=== PATIENT | female | born 1975 | race Caucasian/White ===

== ENCOUNTER 2017-11-24 07:57 | Emergency (ER) | payer SELFPAY ==
[2017-11-24] MEDS ORDERED: KETOROLAC TROMETHAMINE INJ/PF 30 MG/1 ML SDV IV ONE (08:19)
[2017-11-24] MEDS ORDERED: NORMAL SALINE 1000 ML 1,000 ML IV ONE (08:19)
--- NOTE | 2017-11-24 08:22 | ER Document Report ---
ED Flu Like - General Chief Complaint: Flu Symptoms Stated Complaint: BODY ACHES Time Seen by Provider: 11/24/17 08:18 Mode of Arrival: Ambulatory Notes: 42 years old female with a history of hypertension presents today with 2 day history of general body aches and pain malaise and runny nose. Feverish feeling too. Denies any headache neck pain neck stiffness chest pain shortness of breath denies any abdominal pain nausea vomiting diarrhea. TRAVEL OUTSIDE OF THE [place] IN LAST 30 DAYS: No - Related Data Allergies/Adverse Reactions: codeine [Codeine] Allergy (Intermediate, Verified 11/24/17 08:15) Generalized Itching Past Medical History - General Information source: Patient - Social History Smoking Status: Unknown if Ever Smoked Chew tobacco use (# tins/day): No Frequency of alcohol use: None Drug Abuse: None Family History: Reviewed & Not Pertinent Patient has suicidal ideation: No Patient has homicidal ideation: No - Past Medical History Cardiac Medical History: Reports: Hx Hypercholesterolemia, Hx Hypertension Pulmonary Medical History: Reports: Hx Pneumonia Renal/ Medical History: Denies: Hx Peritoneal Dialysis GI Medical History: Reports: Hx Gastroesophageal Reflux Disease Psychiatric Medical History: Reports: Hx Depression Past Surgical History: Reports: Hx Gynecologic Surgery - lap, btl, Hx Orthopedic Surgery - l knee x2 - Immunizations Hx Diphtheria, Pertussis, Tetanus Vaccination: Yes Review of Systems - Review of Systems Constitutional: Chills, Fever, Malaise EENT: Sinus pressure. denies: No symptoms reported, See HPI, Eye pain, Eye discharge, Blurred vision, Tearing, Double vision, Ear pain, Ear discharge, Nose pain, Nose congestion, Nose discharge, Sinus discharge, Throat pain, Difficulty swallowing, Throat swelling, Mouth pain, Mouth swelling, Dental problem, Vertigo, Other Cardiovascular: denies: No symptoms reported, See HPI, Chest pain, Palpitations , Heart racing, Orthopnea, Dyspnea, Syncope, Dizziness, Lightheaded, Edema, Other, Paroxysmal Nocturnal Dysp Respiratory: denies: No symptoms reported, See HPI, Cough, Hurts to breathe, Hemoptysis, Short of breath, Sputum, Stridor, Wheezing, Other Gastrointestinal: denies: No symptoms reported, See HPI, Abdomen distended, Abdominal pain, Diarrhea, Nausea, Vomiting, Constipation, Blood streaked bowels , Poor appetite, Poor fluid intake, Blood in vomit, Black stools, Rectal bleeding, Last bowel movement, Fecal incontinence, Other Genitourinary: denies: No symptoms reported, See HPI, Burning, Dysuria, Discharge, Frequency, Flank pain, Hematuria, Incontinence, Pain, Urgency, Retention, Other Female Genitourinary: denies: No symptoms reported, See HPI, Last menstrual period, , Post menopausal, Heavy/abnormal periods, Irregular period, Vaginal bleeding, Vaginal discharge, Vaginal odor, Painful intercourse, Other Musculoskeletal: denies: No symptoms reported, See HPI, Back pain, Gout, Joint pain, Joint swelling, Muscle pain, Muscle stiffness, Neck pain, Deformity, Leg swelling, Ankle swelling, Other Skin: denies: No symptoms reported, See HPI, Change in color, Change in hair/ nails, Dryness, Lesions, Lumps, Rash, Other Hematologic/Lymphatic: denies: No symptoms reported, See HPI, Anemia, Blood clots, Easy bleeding, Easy bruising, Enlarged lymph nodes, Swollen glands, Other Neurological/Psychological: denies: No symptoms reported, See HPI, Confusion, Dementia, Depression, Hallucinations, Anxiety, Homicidal ideation, Sensory change, Weakness, Gait changes, Loss of power, Paralysis, Seizure, Lost consciousness, Headaches, Speech impairment, Numbness, Suicidal ideation, Tingling, Tremor, Other Physical Exam - Vital signs Vitals: Temp Pulse Resp BP Pulse Ox 99.2 F 112 H 18 152/87 H 99 11/24/17 08:01 11/24/17 08:01 11/24/17 08:01 11/24/17 08:01 11/24/17 08:01 - Notes Notes: PHYSICAL EXAMINATION: GENERAL: General weakness, mild to moderate distress noted. HEAD: Atraumatic, normocephalic. EYES: Pupils equal round and reactive to light, extraocular movements intact, conjunctiva are normal. ENT: Nares patent, oropharynx clear without exudates. Moist mucous membranes. NECK: Normal range of motion, supple without lymphadenopathy LUNGS: Breath sounds clear to auscultation bilaterally and equal. No wheezes rales or rhonchi. HEART: Regular rate and rhythm without murmurs ABDOMEN: Soft, nontender, nondistended abdomen. No guarding, no rebound. No masses appreciated. Female : deferred Musculoskeletal: Normal range of motion, no pitting or edema. No cyanosis. NEUROLOGICAL: Cranial nerves grossly intact. Normal speech, normal gait. Normal sensory, motor exams PSYCH: Normal mood, normal affect. SKIN: Warm, Dry, normal turgor, no rashes or lesions noted. Course - Re-evaluation Re-evalutation: 11/24/17 10:36 She was given IV fluid, - Vital Signs Vital signs: Temp Pulse Resp BP Pulse Ox 99.2 F 112 H 18 152/87 H 99 11/24/17 08:01 11/24/17 08:01 11/24/17 08:01 11/24/17 08:01 11/24/17 08:01 - Laboratory Result Diagrams: 11/24/17 08:34 Laboratory results interpreted by me: 11/24/17 08:34 Hgb 10.3 L Hct 33.0 L MCV 63 L MCH 19.6 L MCHC 31.3 L RDW 19.3 H Lymphocytes % 11.8 L Eosinophils % 6.3 H Influenza came back negative Discharge - Discharge Clinical Impression: Viral syndrome, Dehydration Condition: Critical Disposition: HOME, SELF-CARE Instructions: Viral Syndrome ([facility]), Acetaminophen
[2017-11-24 09:03] LABS: ABSOLUTE EOSINOPHILS # (AUTO) 0.5 10^3/uL (0.0-0.6); ABSOLUTE NEUT (AUTO) 5.5 10^3/uL (1.7-8.2); BASOPHILS % (AUTO) 0.6 % (0-2); EOSINOPHILS % (AUTO) 6.3 % (0-6); HEMOGLOBIN 10.3 g/dL (12.0-15.5); LYMPHOCYTES % (AUTO) 11.8 % (13-45); MEAN CORPUSCULAR HEMOGLOBIN 19.6 pg (27.0-33.4); MEAN CORPUSCULAR HGB CONC 31.3 g/dL (32.0-36.0); MONOCYTES % (AUTO) 12.5 % (3-13); PLATELET COUNT 257 10^3/uL (150-450); RED BLOOD COUNT 5.28 10^6/uL (3.72-5.28); RED CELL DISTRIBUTION WIDTH 19.3 % (11.5-14.0); SEGMENTED NEUTROPHILS % (AUTO) 68.8 % (42-78); TOTAL CELLS COUNTED % (AUTO) 100 %; WHITE BLOOD COUNT 8.1 10^3/uL (4.0-10.5)
[2017-11-24 09:10] LABS: A TYPE INFLUENZA AG NEGATIVE (NEGATIVE); B INFLUENZA AG NEGATIVE (NEGATIVE)
[2017-11-24 09:32] LABS: MEAN CORPUSCULAR VOLUME 63 fl (80-97)
[2017-11-24 09:35] LABS: ANISOCYTOSIS 2+; HYPOCHROMASIA 2+; OVALOCYTES 1+; PLATELET COMMENT ADEQUATE; POIKILOCYTOSIS 1+; POLYCHROMASIA SLIGHT
[2017-11-24 11:08] VITALS: BP 133/77
== END 2017-11-24 10:53 | disposition home or self-care (01) ==
LOC: ER 07:57
DX: B34.9 Viral infection, unspecified (principal); E86.0 Dehydration; R53.81 Other malaise; R09.89 Other specified symptoms and signs involving the circulatory and respiratory systems; R52 Pain, unspecified; R50.9 Fever, unspecified; R53.1 Weakness; J34.89 Other specified disorders of nose and nasal sinuses; I10 Essential (primary) hypertension
CPT/HCPCS: 99283; 96361; 96374; 36415; 85025; 87804; J1885; J7030

== ENCOUNTER 2019-02-07 18:57 | Emergency (ER) | payer MEDICAID ==
[~2019-02-07 18:57] MED LIST: ROCURONIUM BROMIDE INJ 50 MG/5 ML VIAL IV ONE; TENECTEPLASE INJ 50 MG KIT IV ONE
[2019-02-07] MEDS ORDERED: ENOXAPARIN SODIUM INJ 100 MG/1 ML DISP.SYRIN SUBCUT ONE (18:59)
[2019-02-07] MEDS ORDERED: PROPOFOL 1,000 MG/100 ML INFUS..BTL IV ONE (19:06)
[2019-02-07] MEDS ORDERED: HYDROMORPHONE HCL INJ/PF 2 MG/ML AMPULE ONE (19:06)
[2019-02-07] MEDS ORDERED: NITROGLYCERIN/D5W 50 MG/250 ML RTUINJ IV ONE (19:12)
[2019-02-07] MEDS ORDERED: HYDROMORPHONE HCL INJ/PF 2 MG/ML AMPULE IV PRN (19:21)
[2019-02-07] MEDS ORDERED: NITROGLYCERIN/D5W 50 MG/250 ML RTUINJ IV PRN (19:22)
[2019-02-07] MEDS ORDERED: AMIODARONE HCL 150 MG in DEXTROSE 5%-WATER 100 ML IV ONE (19:25)
[2019-02-07] MEDS ORDERED: DEXTROSE 5%-WATER 500 ML with AMIODARONE HCL 900 MG IV PRN ×2 (19:26)
[2019-02-07] MEDS ORDERED: AMIODARONE HCL INJ 150 MG/3 ML VIAL IV ONE ×2 (19:27→19:28)
--- NOTE | 2019-02-07 19:28 | ER Document Report ---
ED General - General Stated Complaint: POST ARREST Time Seen by Provider: 02/07/19 19:21 Cannot obtain history due to: Unstable vital signs, Altered mental status Notes: Patient is a 45-year-old female with unknown past medical history who presents by EMS after a cardiac arrest in the setting of V. tach. Patient apparently called for chest pain, in route to the hospital had a V. tach arrest. No additional history can be obtained beyond what is discussed in the course section as patient is lethargic and unable to answer any questions. - Related Data Allergies/Adverse Reactions: No Known Allergies Allergy (Unverified 02/07/19 19:51) Past Medical History - General Information source: Emergency Med Personnel Cannot obtain history due to: Unstable vital signs, Altered mental status - Social History Smoking Status: Unknown if Ever Smoked Family History: Reviewed & Not Pertinent Review of Systems - Review of Systems -: Yes ROS unobtainable due to patient's medical condition Physical Exam - Vital signs Vitals: Pulse Ox 91 L 02/07/19 19:03 Interpretation: Hypertensive, Tachycardic, Hypoxic Notes: PHYSICAL EXAMINATION: GENERAL: Lethargic, wakes to loud voice. Rapidly goes back to sleep, covered in vomitus HEAD: Atraumatic, normocephalic. EYES: Pupils equal round and reactive to light, extraocular movements intact, sclera anicteric, conjunctiva are normal. ENT: nares patent, oropharynx clear without exudates. Moderately dry mucous membranes. NECK: Supple without lymphadenopathy LUNGS: Mild tachypnea. Breath sounds clear to auscultation bilaterally and equal. No wheezes rales or rhonchi. HEART: Regular tachycardia without murmurs ABDOMEN: Soft,normoactive bowel sounds. No guarding, no rebound. No masses appreciated. EXTREMITIES: no pitting or edema. No cyanosis. NEUROLOGICAL: No focal neurological deficits moves all extremities on command. Opens eyes to voice. States her name when asked. States "just a little bit" when asked if she is having any additional chest pain but does not answer additional questions PSYCH: As above SKIN: Warm, Dry, normal turgor, no rashes or lesions noted. Course - Re-evaluation Re-evalutation: 02/07/19 19:20 Documentation is delayed as I been at this patient's bedside continuously since arriving to the emergency department. In summary the patient has been here since 1855. Patient was initially called to me by EMS with concerns of ongoing chest pain. EMS reported that the initial EKG showed a possible STEMI pattern in the inferior lateral leads but that they had repeated EKG and it had showed a normal sinus rhythm on 2 separate occasions. The patient did have ongoing chest pain and given the concern of an initial pattern of ischemic change I advised them to route to a PCI capable facility. We did discuss whether or not a STEMI could be called in the field. I advised that if the patient's current EKG was showing a normal sinus pattern I did not believe that a STEMI could be called in the field. Approximately less than 5 minutes from the scene EMS reports the patient had a V. tach arrest, shocked once and the patient had return of spontaneous circulation. She did have one episode of emesis. Patient was mentating although in a depressed mental state. She was able to speak her name and follow commands in all 4 extremities. When the patient came to the emergency department she could open her eyes, state her name to me and follow commands in all 4 extremities. However she was saturating 86% on room air, into the low 90s on supplemental oxygen and there was concern of hypoventilation as well as possible aspiration during the emesis event. The initial EKG at time of patient's presentation did not show a STEMI pattern. However, given that the patient had 2 EKGs after her V. tach event that did show a STEMI pattern in the inferior laterally and she had had a cardiac arrest in the setting of V. tach I did elect to proceed with an activation of the STEMI protocol as soon as the patient arrived to our facility. TNKase were administered at 1905. Patient was given IV Lovenox. I did not believe that her mental status was stable enough to receive oral Plavix. She has already received aspirin prior to arrival. Given the patient's depressed mental status, hypoventilation, and possible aspiration event I did elect to proceed with RSI. This was completed using etomidate and rocuronium. First-pass success was achieved. Patient was placed on a PEEP of 10 as despite being on 100% FiO2 she did maintain saturations into the mid 90s. Chest x-ray showed appropriate location of the ET tube but did not demonstrate any obvious aspiration. OG tube was placed. Sanford catheter was placed. The patient has been started on amiodarone infusion after initial amiodarone bolus of 150 mg. I did discuss this case with the track production engineer at [facility] who has accepted this patient. We are working to see if the patient can be flown if weather allows. Patient is in critical condition, will continue to be reassessed at regular intervals. 02/07/19 19:30 I did have an EKG repeated at 1923. This repeat EKG does demonstrate a STEMI pattern in the lateral leads. We are awaiting transport. 02/07/19 19:44 I have updated the at the bedside. I informed her that she will be transported to [facility] in [place]. The patient remains hemodynamically within acceptable limits at this time. She is saturating 97% on 80% FiO2, blood pres sure 123 on 84. Heart rate 94. She is currently sedated on propofol. Air transport is less than 5 minutes away. 02/07/19 20:18 Initial troponin is 0.085. Flight crew has arrived for transport to [facility]. Bedside report has been given. - Vital Signs Vital signs: Temp Pulse Resp BP Pulse Ox 14 198/119 H 88 L 02/07/19 19:51 02/07/19 19:56 02/07/19 19:56 - Laboratory Result Diagrams: 02/07/19 19:00 02/07/19 19:00 Laboratory results interpreted by me: 02/07/19 02/07/19 19:00 19:00 Hgb 9.7 L Hct 32.4 L MCV 62 L MCH 18.5 L MCHC 30.0 L RDW 19.4 H Glucose 176 H AST 47 H - Diagnostic Test Radiology reviewed: Image reviewed, Reports reviewed Radiology results interpreted by me: 02/07/19 19:34 Chest x-ray: ET tube in appropriate position, no obvious aspiration - EKG Interpretation by Me Additional EKG results interpreted by me: 02/07/19 20:08 Initial EK rate, subtle slight ST elevations in V3 through 4. QTC is 491. 02/07/19 20:10 EKG 2: Sinus rhythm, rate 106. ST elevations in V3 through 4 consistent with STEMI. QTC is 505. Procedures - Intubation Orotracheal Airway evaluation: Normal anatomy Mallampati Classification: Class 1 Medications: Etomidate, Other - Rocuronium Intubation method: Orotracheal Blade type: Rosario Blade size: 4 ETT size: 7.5 ETT secured at: Gums ETT secured at (cm): 21 Breath Sounds after Intubation: Equal End tidal CO2 confirmed: Yes Ventilator settings: SIMV Tidal volume: 450 FiO2: 80 Respirations: 14 PEEP: 10 Post Intubation Xray: Yes Intubation Complications: No complications Critical Care Note - Critical Care Note Total time excluding time spent on procedures (mins): 75 Comments: Critical care time spent obtaining history from patient or surrogate, discussions with consultants, development of treatment plan with patient or surrogate, evaluation of patient's response to treatment, examination of patient, ordering and performing treatments and interventions, ordering and review of laboratory studies, re-evaluation of patient's condition, ordering and review of radiographic studies and review of old charts Discharge - Discharge Clinical Impression: Acute respiratory failure with hypoxia, V tach STEMI (ST elevation myocardial infarction) Qualifiers: Involved coronary artery: unspecified coronary artery Qualified Code(s): I21.3 - ST elevation (STEMI) myocardial infarction of unspecified site Condition: Critical Disposition: [facility]
[2019-02-07 19:32] LABS: ABSOLUTE BASOPHILS # (AUTO) 0.1 10^3/uL (0.0-0.2); ABSOLUTE EOSINOPHILS # (AUTO) 0.5 10^3/uL (0.0-0.6); ABSOLUTE LYMPHOCYTES (AUTO) 2.7 10^3/uL (0.5-4.7); ABSOLUTE MONOCYTES (AUTO) 0.9 10^3/uL (0.1-1.4); ABSOLUTE NEUT (AUTO) 6.3 10^3/uL (1.7-8.2); EOSINOPHILS % (AUTO) 4.6 % (0-6); HEMATOCRIT 32.4 % (36.0-47.0); HEMOGLOBIN 9.7 g/dL (12.0-15.5); LYMPHOCYTES % (AUTO) 25.9 % (13-45); MEAN CORPUSCULAR HEMOGLOBIN 18.5 pg (27.0-33.4); MONOCYTES % (AUTO) 8.4 % (3-13); PLATELET COUNT 352 10^3/uL (150-450); RED BLOOD COUNT 5.25 10^6/uL (3.72-5.28); RED CELL DISTRIBUTION WIDTH 19.4 % (11.5-14.0); SEGMENTED NEUTROPHILS % (AUTO) 60.1 % (42-78); TOTAL CELLS COUNTED % (AUTO) 100 %; WHITE BLOOD COUNT 10.5 10^3/uL (4.0-10.5)
[2019-02-07 19:34] LABS: MEAN CORPUSCULAR VOLUME 62 fl (80-97)
[2019-02-07 19:35] LABS: ALANINE AMINOTRANSFERASE 50 U/L (9-52); ALBUMIN 4.2 g/dL (3.5-5.0); ALKALINE PHOSPHATASE 83 U/L (38-126); ANION GAP 11 (5-19); ASPARTATE AMINO TRANSFERASE 47 U/L (14-36); BILIRUBIN,DIRECT 0.3 mg/dL (0.0-0.4); BILIRUBIN,TOTAL 0.3 mg/dL (0.2-1.3); BLOOD UREA NITROGEN 13 mg/dL (7-20); CALCIUM 9.3 mg/dL (8.4-10.2); CARBON DIOXIDE 25 mmol/L (22-30); CHLORIDE 103 mmol/L (98-107); CREATINE KINASE 59 U/L (30-135); GLUCOSE 176 mg/dL (75-110); POTASSIUM 3.7 mmol/L (3.6-5.0); SODIUM 138.6 mmol/L (137-145); TOTAL PROTEIN 7.1 g/dL (6.3-8.2)
--- NOTE | 2019-02-07 19:37 | RADIOLOGY REPORT (SQ) ---
EXAM DESCRIPTION: CHEST SINGLE VIEW COMPLETED DATE/TIME: 02/07/2019 7:26 pm REASON FOR STUDY: post-intubation COMPARISON: None. EXAM PARAMETERS: NUMBER OF VIEWS: One view TECHNIQUE: Single supine frontal radiograph of the chest. RADIATION DOSE: N/A LIMITATIONS: Pacemaker pad partially obscuring the right hemithorax. Multiple monitoring wires are o verlying the chest/upper abdomen. FINDINGS: TEMPORARY SUPPORT DEVICES:ETT in expected location. NG tube courses below the rj-diaphr agm in to the stomach. LUNGS AND PLEURA: There is a pacemaker pad partially obscuring the right hemithorax. No consolidatio n, sizeable pleural effusion or obvious pneumothorax on this supine view. MEDIASTINUM AND HILAR STRUCTURES: No masses. Contour normal. HEART AND VASCULAR STRUCTURES: The heart is upper normal limit in size. There is mild vascular conge stion. BONES: No acute findings. IMPRESSION: 1. Mild vascular congestion. 2. Support devices in expected locations. TECHNICAL DOCUMENTATION: JOB ID: [id number] 2010 [employer]- All Rights Reserved Reading location - IP/workstation name: [email or web address]
[2019-02-07 19:46] LABS: ANISOCYTOSIS 1+; OVALOCYTES 1+; POLYCHROMASIA SLIGHT; STOMATOCYTES SLIGHT; TOXIC GRANULATION SLIGHT
[2019-02-07 19:47] LABS: CREATINE KINASE MB 1.33 ng/mL (<4.55); PLATELET COMMENT ADEQUATE
[2019-02-07 19:49] LABS: TROPONIN I 0.085 ng/mL
[2019-02-07 20:04] VITALS: BP 198/119
[2019-02-07] MEDS ORDERED: PROPOFOL 1,000 MG/100 ML INFUS..BTL IV PRN (20:30)
[2019-02-07] MEDS ORDERED: NORMAL SALINE 1000 ML 1,000 ML IV ONE (20:41)
[2019-02-07] MEDS ORDERED: NORMAL SALINE 1000 ML 1,000 ML IV PRN (20:58)
[2019-02-07] MEDS ORDERED: NITROGLYCERIN 0.4 MG/TAB 25 TAB/BOTTLE SL PRN (20:59)
[2019-02-07] MEDS ORDERED: ASPIRIN 325 MG TABLET PO ONE (21:00)
[2019-02-07] MEDS ORDERED: TENECTEPLASE INJ 50 MG KIT IV ONE (21:00)
--- NOTE | 2019-02-07 23:44 | EKG REPORT ---
SEVERITY:- BORDERLINE ECG - SINUS TACHYCARDIA BORDERLINE PROLONGED QT INTERVAL ST ELEV, PROBABLE NORMAL EARLY REPOL PATTERN : Confirmed by: Holly Tobin MD 07-Feb-2019 23:43:51
--- NOTE | 2019-02-07 23:44 | EKG REPORT ---
SEVERITY:- BORDERLINE ECG - SINUS RHYTHM ST ELEV, PROBABLE NORMAL EARLY REPOL PATTERN BORDERLINE PROLONGED QT INTERVAL : Confirmed by: Holly Tobin MD 07-Feb-2019 23:44:12
[2019-02-08 13:57] LABS: PATH REVIEW PATHOLOGIST REVIEWED
== END 2019-02-07 20:13 | disposition short-term general hospital (02) ==
LOC: EDBD → MERGE 18:57 → ER 18:57
DX: I47.2 Ventricular tachycardia (principal); I21.3 ST elevation (STEMI) myocardial infarction of unspecified site; J96.01 Acute respiratory failure with hypoxia; R11.10 Vomiting, unspecified
CPT/HCPCS: 93005; 99291; 99292; 96372; 51702; 96375; 96365; 36415; 82553; 82550; 84703; 85025; 80053; 84484; 71045; 94660; 93010; 31500; J3101; J3490 ×2; J2704; J1170; J7060 ×2; J7030; J1650; J0282; 94002

== ENCOUNTER 2019-02-12 21:44 | Emergency (ER) | payer MEDICAID ==
--- NOTE | 2019-02-12 22:03 | ER Document Report ---
ED General - General Chief Complaint: Chest Pain Stated Complaint: CHEST PRESSURE Time Seen by Provider: 02/12/19 22:01 Primary Care Provider: HENRY ESPINOSA MD [Primary Care Provider] - Follow up as needed Notes: Patient is a 44-year-old female presents with complaint of chest pressure and heaviness on her chest and feeling unwell. She says she had some heartburn all day and then around 8 PM started feeling pressure on her chest. She took 1 sublingual nitro at home as well as 4 baby aspirin. Paramedics arrived and gave her more nitro and her chest pressure has resolved. She still has some symptoms of indigestion. She denies difficulty breathing. The back of her shorts little bit wet to suggest some diaphoresis. She denies any fevers. Patient has had a [place] with V. tach cardiac arrest approximately 5 days ago. She was transferred to [facility] where they did do a heart cath but she has an obstructing coronary lesion which they cannot stent because the vessel is too small. TRAVEL OUTSIDE OF THE [place] IN LAST 30 DAYS: No - Related Data Allergies/Adverse Reactions: codeine [Codeine] Allergy (Intermediate, Verified 02/12/19 21:49) Generalized Itching Past Medical History - Social History Smoking Status: Former Smoker Frequency of alcohol use: None Drug Abuse: None Family History: Reviewed & Not Pertinent - Past Medical History Cardiac Medical History: Reports: Hx Hypercholesterolemia, Hx Hypertension Pulmonary Medical History: Reports: Hx Pneumonia Renal/ Medical History: Denies: Hx Peritoneal Dialysis GI Medical History: Reports: Hx Gastroesophageal Reflux Disease Psychiatric Medical History: Reports: Hx Depression Past Surgical History: Reports: Hx Gynecologic Surgery - lap, btl, Hx Orthopedic Surgery - l knee x2 - Immunizations Hx Diphtheria, Pertussis, Tetanus Vaccination: Yes Review of Systems - Review of Systems Notes: My Normal Review Basic REVIEW OF SYSTEMS: CONSTITUTIONAL : Denies fever, chills, or sweats. Denies recent illness. CARDIOVASCULAR: Chest pressure. RESPIRATORY: Denies cough, cold, or chest congestion. Denies shortness of breath, difficulty breathing, or wheezing. GASTROINTESTINAL: Denies abdominal pain. Denies nausea, vomiting, or diarrhea. MUSCULOSKELETAL: Denies neck or back pain or joint pain or swelling. SKIN: Denies rash or skin lesions. NEUROLOGICAL: Denies altered mental status or loss of consciousness. Denies headache. Denies weakness or paralysis or loss of use of either side. Denies problems with gait or speech. Denies sensory or motor loss. ALL OTHER SYSTEMS REVIEWED AND NEGATIVE. Physical Exam - Vital signs Vitals: Pulse Ox 98 02/12/19 21:44 - Notes Notes: General Appearance: Well nourished, alert, cooperative, no acute distress, no obvious discomfort. Vitals: reviewed, See vital signs table. Mouth: No decreasd moisture Lungs: No wheezing, No rales, No rhonci, No accessory muscle use, good air exc hange bilaterally. Heart: Normal rate, Regular rythm, No murmur, no rub Abdomen: Normal BS, soft, No rigidity, No abdominal tenderness, No guarding, no rebound, no abdominal masses, no organomegaly Extremities: strength 5/5 in all extremities, good pulses in all extremities, no swelling or tenderness in the extremities, no edema. Skin: warm, dry, appropriate color, no rash Neuro: speech clear, oriented x 3, normal affect, responds appropriately to questions. Course - Re-evaluation Re-evalutation: 02/12/19 23:16 I did speak with [facility]. They do agreed to accept the patient on behalf of Dr. Dawkins. I did ask them about her troponin. It appears her troponin is downtrending. We will hold off on Lovenox at this time. She is received aspirin and Plavix and she is currently pain-free on the nitro drip. All symptoms including her symptoms of indigestion and chest pressure have completely resolved. EKG is on change compared to the one done previously tonight. I did speak with the patient and she is agreeable with transfer. - Vital Signs Vital signs: Temp Pulse Resp BP Pulse Ox 18 117/80 94 02/12/19 22:51 02/12/19 22:51 02/12/19 22:51 - Laboratory Result Diagrams: 02/12/19 21:55 02/12/19 21:55 Laboratory results interpreted by me: 02/12/19 02/12/19 21:55 21:55 Hgb 9.4 L Hct 30.7 L MCV 62 L MCH 18.9 L MCHC 30.5 L RDW 19.6 H Glucose 135 H - EKG Interpretation by Me Additional EKG results interpreted by me: 02/12/19 22:02 EKG is reviewed and interpreted by me. EKG shows sinus rhythm with a rate of [address] segment elevation or depression. Patient does have T wave i nversions in leads V2 through V6 and I and AVL which are new in comparison to her previous EKG from February 07, 2019. 02/12/19 22:52 EKG #2 is reviewed and interpreted by me. EKG shows sinus rhythm with a rate of [address] segment elevation or depression. She does have the same T wave inversions in leads V2 through V6 as well as in leads I and aVL. These appear to be an unchanged from EKG earlier tonight. MA interval, QRS duration, QTc intervals are within normal range. Discharge - Discharge Clinical Impression: Chest pain Qualifiers: Chest pain type: unspecified Qualified Code(s): R07.9 - Chest pain, unspecified Condition: Stable Disposition: [facility] Referrals: HENRY ESPINOSA MD [Primary Care Provider] - Follow up as needed
[2019-02-12 22:08] LABS: ABSOLUTE BASOPHILS # (AUTO) 0.1 10^3/uL (0.0-0.2); ABSOLUTE EOSINOPHILS # (AUTO) 0.6 10^3/uL (0.0-0.6); ABSOLUTE LYMPHOCYTES (AUTO) 1.7 10^3/uL (0.5-4.7); ABSOLUTE MONOCYTES (AUTO) 0.8 10^3/uL (0.1-1.4); ABSOLUTE NEUT (AUTO) 6.9 10^3/uL (1.7-8.2); BASOPHILS % (AUTO) 0.6 % (0-2); EOSINOPHILS % (AUTO) 5.7 % (0-6); HEMATOCRIT 30.7 % (36.0-47.0); HEMOGLOBIN 9.4 g/dL (12.0-15.5); MEAN CORPUSCULAR HEMOGLOBIN 18.9 pg (27.0-33.4); MEAN CORPUSCULAR HGB CONC 30.5 g/dL (32.0-36.0); PLATELET COUNT 322 10^3/uL (150-450); RED BLOOD COUNT 4.97 10^6/uL (3.72-5.28); RED CELL DISTRIBUTION WIDTH 19.6 % (11.5-14.0); SEGMENTED NEUTROPHILS % (AUTO) 68.7 % (42-78); TOTAL CELLS COUNTED % (AUTO) 100 %; WHITE BLOOD COUNT 10.1 10^3/uL (4.0-10.5)
[2019-02-12] MEDS ORDERED: NITROGLYCERIN/D5W 50 MG/250 ML RTUINJ IV PRN (22:09)
[2019-02-12 22:15] LABS: MEAN CORPUSCULAR VOLUME 62 fl (80-97)
[2019-02-12 22:18] LABS: PLATELET COMMENT ADEQUATE
[2019-02-12 22:22] LABS: HYPOCHROMASIA SLIGHT; POLYCHROMASIA SLIGHT
[2019-02-12 22:23] LABS: ALANINE AMINOTRANSFERASE 42 U/L (9-52); ALBUMIN 3.9 g/dL (3.5-5.0); ALKALINE PHOSPHATASE 82 U/L (38-126); ANION GAP 9 (5-19); ANISOCYTOSIS 2+; ASPARTATE AMINO TRANSFERASE 18 U/L (14-36); BILIRUBIN,DIRECT 0.2 mg/dL (0.0-0.4); BILIRUBIN,TOTAL 0.4 mg/dL (0.2-1.3); BLOOD UREA NITROGEN 12 mg/dL (7-20); CALCIUM 9.9 mg/dL (8.4-10.2); CARBON DIOXIDE 27 mmol/L (22-30); CHLORIDE 102 mmol/L (98-107); CREATINE KINASE 39 U/L (30-135); GLUCOSE 135 mg/dL (75-110); OVALOCYTES 1+; POTASSIUM 4.1 mmol/L (3.6-5.0); SODIUM 137.9 mmol/L (137-145); TOTAL PROTEIN 6.7 g/dL (6.3-8.2)
[2019-02-12 22:35] LABS: CREATINE KINASE MB 0.8 ng/mL (<4.55)
[2019-02-12 22:37] LABS: TROPONIN I 1.91 ng/mL
[2019-02-12 22:41] LABS: INTERNATIONAL RATION (INR) 0.92; PROTHROMBIN TIME 12.8 SEC (11.4-15.4)
--- NOTE | 2019-02-12 22:57 | RADIOLOGY REPORT (SQ) ---
EXAM DESCRIPTION: XR CHEST 1 VIEW COMPLETED DATE/TME: 02/12/2019 21:46 CLINICAL HISTORY: 44 years, Female, chest pain Comparison: None FINDINGS: No focal lung consolidation. No pleural effusion. No pneumothorax. Cardiac and mediastinal silhouette is unremarkable. No acute osseous abnormality. Soft tissues are unremarkable. IMPRESSION: No acute findings. No focal lung consolidation.
[2019-02-13 00:53] VITALS: BP 122/56
--- NOTE | 2019-02-13 08:44 | EKG REPORT ---
SEVERITY:- ABNORMAL ECG - SINUS RHYTHM ABNORMAL T, CONSIDER ISCHEMIA, ANT-LAT LEADS : Confirmed by: Chris Cates MD 13-Feb-2019 08:40:08
--- NOTE | 2019-02-13 08:44 | EKG REPORT ---
SEVERITY:- ABNORMAL ECG - SINUS RHYTHM ABNORMAL T, PROBABLE ISCHEMIA, ANT-LAT LEADS : Confirmed by: Chris Cates MD 13-Feb-2019 08:40:21
== END 2019-02-13 00:39 | disposition short-term general hospital (02) ==
LOC: ER 21:44
DX: R07.9 Chest pain, unspecified (principal); E78.00 Pure hypercholesterolemia, unspecified; I10 Essential (primary) hypertension; Z88.6 Allergy status to analgesic agent
CPT/HCPCS: 93005; 99285; 96365; 96366; 36415; 82553; 82550; 85025; 85610; 80053; 84484; 71045; 93010; J3490

== ENCOUNTER 2020-08-26 09:42 | Emergency (ER) | payer MEDICAID ==
--- NOTE | 2020-08-26 10:23 | ER Document Report ---
ED General - General Chief Complaint: Shortness Of Breath Stated Complaint: COUGH,SHORT OF BREATH Time Seen by Provider: 08/26/20 10:03 Primary Care Provider: BRANDT HUGHES NP [Primary Care Provider] - Follow up as needed TRAVEL OUTSIDE OF THE [place] IN LAST 30 DAYS: No - HPI Notes: 45-year-old female with a history of an IL a year ago, type 2 diabetes on Metformin, hyperlipidemia patient denies any positive Covid interactions or having a positive exposure to Covid. Presents to the emergency room with a cough that started yesterday with shortness of breath that started this morning. Denies any fevers chills, nausea vomiting or diarrhea, denies any chest pain. Patient did not get a flu shot this year. Patient states she smokes sparingly prior to her heart attack she did smoke a pack a day. Last menstrual cycle 08/22/2020. Denies any history of asthma, COPD. - Related Data Allergies/Adverse Reactions: codeine [Codeine] Allergy (Intermediate, Verified 08/26/20 10:25) Generalized Itching Past Medical History - General Information source: Patient - Social History Smoking Status: Current Every Day Smoker Family History: Reviewed & Not Pertinent - Past Medical History Cardiac Medical History: Reports: Hx Heart Attack, Hx Hypercholesterolemia, Hx Hypertension Pulmonary Medical History: Reports: Hx Pneumonia Renal/ Medical History: Denies: Hx Peritoneal Dialysis GI Medical History: Reports: Hx Gastroesophageal Reflux Disease Psychiatric Medical History: Reports: Hx Depression Past Surgical History: Reports: Hx Cardiac Catheterization, Hx Gynecologic Surgery - lap, btl, Hx Orthopedic Surgery - l knee x2 - Immunizations Hx Diphtheria, Pertussis, Tetanus Vaccination: Yes Review of Systems - Review of Systems Constitutional: No symptoms reported EENT: See HPI Cardiovascular: No symptoms reported Respiratory: See HPI Gastrointestinal: No symptoms reported Genitourinary: No symptoms reported Female Genitourinary: No symptoms reported Musculoskeletal: No symptoms reported Skin: No symptoms reported Hematologic/Lymphatic: No symptoms reported Neurological/Psychological: No symptoms reported Physical Exam - Vital signs Vitals: Temp Pulse Resp BP Pulse Ox 98.1 F 88 26 H 151/95 H 97 08/26/20 09:57 08/26/20 09:57 08/26/20 09:57 08/26/20 09:57 08/26/20 09:57 - Notes Notes: PHYSICAL EXAMINATION:reviewed vital signs by RN GENERAL: Well-appearing, well-nourished and in no acute distress. HEAD: Atraumatic, normocephalic. EYES: Pupils equal round and reactive to light, extraocular movements intact, conjunctiva are normal. ENT: TM intact with bilateral serous effusion, no erythema. Nares boggy bilaterally, oropharynx with erythema without exudates. Moist mucous membranes. NECK: Normal range of motion, supple without lymphadenopathy LUNGS: Breath sounds clear to auscultation bilaterally and equal. No wheezes rales or rhonchi. HEART: Regular rate and rhythm without murmurs ABDOMEN: Soft, nontender, nondistended abdomen. No guarding, no rebound. No masses appreciated. Female : deferred Musculoskeletal: Normal range of motion, no pitting or edema. No cyanosis. NEUROLOGICAL: Cranial nerves grossly intact. Normal speech, normal gait. Normal sensory, motor exams PSYCH: Normal mood, normal affect. SKIN: Warm, Dry, normal turgor, no rashes or lesions noted. Course - Re-evaluation Re-evalutation: 08/26/20 12:34 Afebrile vital stable no distress. Nurses notes reviewed. CBC negative for leukocytosis or anemia, CMP negative for hepatic or renal dysfunction, no electrolyte disturbances. Chest x-ray negative for pneumonia, pneumothorax or other findings. Patient symptomatic with cough, will send her home with a prescription for azithromycin and prednisone and rescue inhaler. Advised to follow-up with her primary care provider within the next 24 to 48 hours. Patient is under investigation for Covid, Covid test is pending. Advised to self quarantine, social distance, wear mask, wash hands frequently. After performing a Medical Screening Examination, I estimate there is LOW risk for ACUTE CORONARY SYNDROME, PULMONARY EMBOLI, RESPIRATORY FAILURE, SEPSIS OR MENINGITIS, thus I consider the discharge disposition reasonable. I have reevaluated this patient multiple times and no significant life threatening changes are noted. The patient and I have discussed the diagnosis and risks, and we agree with discharging home with close follow-up. We also discussed returning to the Emergency Department immediately if new or worsening symptoms occur. We have discussed the symptoms which are most concerning (e.g., changing or worsening pain, trouble swallowing or breathing, neck stiffness, fever) that necessitate immediate return. - Vital Signs Vital signs: Temp Pulse Resp BP Pulse Ox 98.1 F 88 26 H 151/95 H 97 08/26/20 09:57 08/26/20 09:57 08/26/20 09:57 08/26/20 09:57 08/26/20 09:57 - Laboratory Result Diagrams: 08/26/20 11:04 08/26/20 11:04 Laboratory results interpreted by me: 08/26/20 08/26/20 11:04 11:04 RDW 15.5 H Glucose 118 H Discharge - Discharge Clinical Impression: Cough, Person under investigation for COVID-19 Condition: Stable Disposition: HOME, SELF-CARE Instructions: COVID-19 Guidance for Persons Under Investigation Additional Instructions: Your chest x-ray was negative for pneumonia or any acute findings, your lab work was normal. Please social distance, wear a mask and wash hands frequently. Please take azithromycin, prednisone and rescue inhaler as needed. Follow-up with your primary care provider within the next 24 to 48 hours as needed. Return immediately for any new or worsening symptoms. Follow up with primary care provider, call tomorrow to make followup appointment. Prescriptions: Prednisone [Deltasone 20 mg Tablet] 3 tab PO DAILY 5 Days #15 tablet Albuterol Sulfate [Proair HFA Inhalation Aerosol 8.5 gm MDI] 2 puff IH Q4H PRN #1 mdi PRN Reason: Azithromycin [Zithromax] 250 mg PO DAILY 5 Days #6 tablet Forms: Return to Work Referrals: BRANDT HUGHES, [employer]ENDANT [Primary Care Provider] - Follow up as needed
--- NOTE | 2020-08-26 10:54 | RADIOLOGY REPORT (SQ) ---
EXAM DESCRIPTION: CHEST SINGLE VIEW IMAGES COMPLETED DATE/TIME: 08/26/2020 10:39 am REASON FOR STUDY: cough and sob x1d COMPARISON: Chest films 02/12/2019, 02/07/2019 EXAM PARAMETERS: NUMBER OF VIEWS: One view. TECHNIQUE: Single frontal radiographic view of the chest acquired. RADIATION DOSE: NA LIMITATIONS: None. FINDINGS: LUNGS AND PLEURA: No opacities, masses or pneumothorax. No pleural effusion. MEDIASTINUM AND HILAR STRUCTURES: No masses. Contour normal. HEART AND VASCULAR STRUCTURES: Heart normal in size. Normal vasculature. BONES: No acute findings. HARDWARE: None in the chest. OTHER: No other significant finding. IMPRESSION: NO ACUTE RADIOGRAPHIC FINDING IN THE CHEST. TECHNICAL DOCUMENTATION: JOB ID: [id number] 2010 [employer]- All Rights Reserved Reading location - IP/workstation name: [email or web address]
[2020-08-26 11:28] LABS: ABSOLUTE BASOPHILS # (AUTO) 0.1 10^3/uL (0.0-0.2); ABSOLUTE EOSINOPHILS # (AUTO) 0.3 10^3/uL (0.0-0.6); ABSOLUTE LYMPHOCYTES (AUTO) 1.2 10^3/uL (0.5-4.7); ABSOLUTE MONOCYTES (AUTO) 0.6 10^3/uL (0.1-1.4); ABSOLUTE NEUT (AUTO) 4.1 10^3/uL (1.7-8.2); BASOPHILS % (AUTO) 0.9 % (0-2); EOSINOPHILS % (AUTO) 5.5 % (0-6); HEMATOCRIT 37.6 % (36.0-47.0); HEMOGLOBIN 12.5 g/dL (12.0-15.5); LYMPHOCYTES % (AUTO) 19.2 % (13-45); MEAN CORPUSCULAR HEMOGLOBIN 28.4 pg (27.0-33.4); MEAN CORPUSCULAR HGB CONC 33.2 g/dL (32.0-36.0); MEAN CORPUSCULAR VOLUME 86 fl (80-97); MONOCYTES % (AUTO) 9.7 % (3-13); PLATELET COUNT 258 10^3/uL (150-450); RED BLOOD COUNT 4.39 10^6/uL (3.72-5.28); RED CELL DISTRIBUTION WIDTH 15.5 % (11.5-14.0); SEGMENTED NEUTROPHILS % (AUTO) 64.7 % (42-78); TOTAL CELLS COUNTED % (AUTO) 100 %; WHITE BLOOD COUNT 6.3 10^3/uL (4.0-10.5)
[2020-08-26 11:43] LABS: ALKALINE PHOSPHATASE 92 U/L (38-126); ANION GAP 6 (5-19); ASPARTATE AMINO TRANSFERASE 23 U/L (14-36); BILIRUBIN,DIRECT 0.2 mg/dL (0.0-0.4); BILIRUBIN,TOTAL 0.3 mg/dL (0.2-1.3); BLOOD UREA NITROGEN 10 mg/dL (7-20); CALCIUM 9.3 mg/dL (8.4-10.2); CARBON DIOXIDE 27 mmol/L (22-30); CHLORIDE 104 mmol/L (98-107); GLUCOSE 118 mg/dL (75-110); POTASSIUM 4.6 mmol/L (3.6-5.0); TOTAL PROTEIN 6.8 g/dL (6.3-8.2)
[2020-08-26 12:38] LABS: A TYPE INFLUENZA AG NEGATIVE (NEGATIVE); B INFLUENZA AG NEGATIVE (NEGATIVE)
[2020-08-26 13:26] VITALS: BP 150/88
== END 2020-08-26 13:25 | disposition home or self-care (01) ==
LOC: ER 09:42
DX: R05 Cough (principal); R06.02 Shortness of breath; E11.9 Type 2 diabetes mellitus without complications; F17.200 Nicotine dependence, unspecified, uncomplicated; E78.5 Hyperlipidemia, unspecified; Z20.828 Contact with and (suspected) exposure to other viral communicable diseases; Z79.84 Long term (current) use of oral hypoglycemic drugs; Z88.6 Allergy status to analgesic agent; I25.2 Old myocardial infarction
CPT/HCPCS: 99284; 36415; 85025; 87635; 80053; 87804; 71045; C9803